=== PATIENT | male | born 1945 | race Caucasian/White ===

== ENCOUNTER → 2018-11-12 | Outpatient (CLI) | payer MEDICARE ==
--- NOTE | 2018-11-12 14:50 | PCVCIMAG ---
APPROVED REPORT Study performed: 11/12/2018 12:55:51 Exam: Stress Echocardiogram Indication: CAD by elevated calcium score- 1301, dm, htn, fam hx early CAD Patient Location: Echo lab Stress Nurse: Ashley Delcid RN Status: routine Ht: 6 ft 2 in HR: 82 bpm BP: 148/92 mmHg Rhythm: NSR w/ frequent PVCs and PACs Procedure The patient underwent an Exercise Stress Test using the [place] Protocol. Blood pressure, heart rate, and EKG were monitored. An Echocardiogram was performed by radiologic technician in four stages in quad fashion. At peak stress, four selected images were obtained and placed side by side with resting images for comparison. Stress Test Details Stress Test: Exercise stress testing was performed using a [place]es protocol. HR Resting HR: 82 bpmMax Heart Rate (APMHR): 150 bpm Max HR Achieved: 157 bpmTarget HR (85% APMHR): 127 bpm % of APMHR: 104 Recovery HR: 93 bpm HR response to stress: Normal HR response to stress BP Resting BP: 148/92 mmHg Max BP: 170/86 mmHg Recovery BP: 140/80 mmHg BP response to stress: Normal blood pressure response to stress. ECG Resting ECG: NSR with PVCs and PACs Stress ECG: Sinus Rhythm ST Change: Non-ischemic Arrhythmia: PVCs and PACs Recovery ECG: Sinus Rhythm Recovery ST Change: Normal Recovery Arrhythmia: PVCs and PACs Clinical Reason for Termination: Maximal effort Stress Symptoms: Dyspnea Exercise duration: 6 min 8 sec Highest Stage Achieved: Stage 3: 3.4 mph at 14% grade. Exercise capacity: 7.4 METs Overall Exercise Capacity for Age: Normal Scale: Sedentary Angina Score: None Pre-Stress Echo The resting Echocardiogram showed normal left ventricular contractility with an estimated Ejection Fraction of about >55%. Normal wall motion in all segments on baseline images. Post-Stress Echo The stress Echocardiogram showed normal left ventricular contractility with an estimated Ejection Fraction of about 65%. Normal augmentation of wall motion in all segments on post stress images. Clinical No clinical or ECG evidence for ischemia. Conclusion Clinical Response: Non-ischemic Exercise Capacity: Average Stress ECG Response: Non-ischemic Stress Echo Images: Non-ischemic The left ventricle is normal in size and wall thickness in both the rest and stress images. Other Information Study Quality: Adequate <Conclusion> The left ventricle is normal in size and wall thickness in both the rest and stress images.
== END | disposition home or self-care (01) ==
LOC: PCVCIMAG 12:33
PROVIDERS: ATTEND Family Medicine
DX: I25.10 Atherosclerotic heart disease of native coronary artery without angina pectoris (principal)
CPT/HCPCS: 93325; 93351